=== PATIENT | male | born 1980 | race Caucasian/White ===

== ENCOUNTER 2021-03-10 12:54 | Emergency (ER) | payer SELFPAY ==
[~2021-03-10] VITALS: Ht 182.9 cm; Wt 82.6 kg
--- NOTE | 2021-03-10 13:07 | NUR ---
[id number], UNRESPONSIVE S/P HEROIN USE.NARCAN 4MG TOTAL GIVEN IVP [place]. THE PATIENT IS ALERT AND ORIENTED X2. HAS CLEAR SPEECH. DENIES SI/HI. IN ROOM AIR AND DENIES SOB. RESPIRATION REGULAR AND UNLABORED. ATTACHED TO THE MONITOR.
[2021-03-10] MEDS ORDERED: NALO4SPR NS (13:17)
--- NOTE | 2021-03-10 15:04 | NUR ---
The patient is alert and oriented x4. In room air and denies SOB. Respiration regular and unlabored. Denies pain. Denies SI/HI. In no apparent distress. Food/po fluids provided and the patient tolerated well. Patient has stable gait. Patient discharged in stable condition. Written and verbal after care instructions given. Patient verbalizes understanding of instruction.
[2021-03-10 15:05] VITALS: BP 116/62
== END 2021-03-10 15:06 | disposition home or self-care (01) ==
LOC: ER 13:01
DX: T40.2X1A Poisoning by other opioids, accidental (unintentional), initial encounter (principal); R00.0 Tachycardia, unspecified; Z88.0 Allergy status to penicillin; Z79.899 Other long term (current) drug therapy; Y92.89 Other specified places as the place of occurrence of the external cause